=== PATIENT | male | born 1985 | race Caucasian/White ===

== ENCOUNTER 2023-10-09 07:27 | Day surgery (SDC) | payer OTHER ==
[2023-10-07 12:27] VITALS: BMI 51.1
[~2023-10-09 07:27] MED LIST: HYDROmorphone 0.5 MG/0.5 ML SYRINGE IVP PRN; LIDOCAINE 1% (10MG/ML) FOR IV START INTRADERMA PRN; MIDAZOLAM 2 MG/2 ML VIAL IV PRN
[2023-10-09] MEDS: LACTATED RINGERS 1,000 ML IV SCH (07:49)
[2023-10-09 08:08] VITALS: RESP 16
[2023-10-09] MEDS: DEXAMETHASONE SOD PHOSPHATE 4 MG/ML 1 ML VIAL IV ONE (08:16)
[2023-10-09] MEDS: ONDANSETRON 4 MG/2 ML VIAL IVP ONE ×2 (08:16→11:50)
[2023-10-09] MEDS: MIDAZOLAM 2 MG/2 ML VIAL IVP ONE (08:51)
[2023-10-09] MEDS ORDERED: fentaNYL (PF) 50 MCG/ML 2 ML AMP ONE (09:19)
[2023-10-09] MEDS ORDERED: PHENYLEPHRINE 10 MG/ML VIAL ONE (09:19)
[2023-10-09] MEDS ORDERED: SUCCINYLCHOLINE CHLORIDE 200 MG/10 ML VIAL IV ONE (09:19)
[2023-10-09] MEDS ORDERED: PROPOFOL 10 MG/ML 20 ML VIAL IV ONE (09:19)
[2023-10-09] MEDS ORDERED: MIDAZOLAM 2 MG/2 ML VIAL ONE (09:19)
[2023-10-09] MEDS ORDERED: ROPIVACAINE 5 MG/ML 30 ML VIAL ONE (09:19)
[2023-10-09] MEDS ORDERED: LIDOCAINE 1% INJ 10MG/ML (20 ML MDV) ONE (09:19)
[2023-10-09] MEDS ORDERED: DEXAMETHASONE SOD PHOSPHATE 4 MG/ML 1 ML VIAL ONE (09:19)
[2023-10-09] MEDS: ceFAZolin 3 GM in SODIUM CHLORIDE 0.9% 100 ML IVPB PRN (09:22)
--- NOTE | 2023-10-09 09:39 | P.ANPRN ---
Procedure Note - Anesthesia - Nerve Block Performed Left Popliteal Single Time Out Performed: Yes Date of Procedure: 10/09/23 Procedure Start Time: 08:50 Procedure Stop Time: 09:00 Location of Patient: PreOp Indication: Acute Post-Operative Pain, Requested by Surgeon Sedation Type: Sedate with meaningful contact maintained Preparation: Sterile Prep, Sterile Dressing Position: Right Lateral Catheter: None Needle Types: Facet Needle Gauge: 20 Ultrasound used to visualize needle placement: Yes Ultrasound used to observe medication spread: Yes Injectate: 0.5% Ropivacaine (see comment for volume) (30 ml + decadron 4 mg) Blood Aspirated: No Pain Paresthesia on Injection Noted: No Resistance on Injection: Normal Image Stored and Saved: Yes Events: Uneventful and Well Tolerated
[2023-10-09] MEDS: LACTATED RINGERS 1,000 ML IV ONE (10:24)
--- NOTE | 2023-10-09 10:35 | P.OP ---
Date of Procedure: 10/09/23 Preoperative Diagnosis: 1.left ankle instability 2. Sprain of anterior talofibular ligament left ankle Postoperative Diagnosis: 1. Same 2. Same Procedure(s) Performed: secondary repair left lateral ankle ligaments Implants: Arthrex internal brace Arthrex knotless fiber Quentin anchors 2 Anesthesia: MINIA Surgeon: Justice Boogie Estimated Blood Loss (ml): 10 Pathology: none sent Condition: stable Disposition: PACU Description of Procedure: Prior to the patient being brought to the operating room, anesthesia administered a nerve block on the affected extremity. The patient was brought into the operative room and placed on table supine position. Timeout was taken to confirm correct patient identifiers, correct laterality of surgery, and correct procedure. Once all staff in the room were in agreement with the timeout, the patient was induced and placed under general anesthesia. A well- padded tourniquet was placed on the left calf and a bump underneath the hip of the expected extremity to internally rotate the leg. The leg was then prepped and draped in usual manner. The leg was exsanguinated and the tourniquet inflated to 250 mmHg. Attention was directed over the anterior lateral ankle, where a incision was made just anterior to lateral malleolus. The incision was deepened down to the subcutaneous tissue careful to identify, avoid, and retract any neurovascular structures and cauterize any bleeding vessels. Blunt dissection was continued down to the lateral ankle joint capsule and ligamentous structures. The capsule and ligamentous structures were sharply incised off of the anterior surface the lateral malleolus. A Housekeeper Nanny was used to remove the cortical bone on the anterior surface the lateral malleolus and the roughened edges smoothed with a rasp. This is to allow adhesion of the ligaments upon repair. With the ankle in neutral position, the soft tissue over the lateral aspect of the talus, anterior to the joint surface, and near the junction of the neck, was palpated for the location of the 4.75 mm anchor. A small stab incision was made through the tissue and then the drill hole for the 4.75 mm anchor was made into the talus in such a way to avoid the ankle and subtalar joints. The hole was tapped and then the 4.75 mm anchor inserted and advanced down to proper depth. The wood heel flap inserter was removed and the suture was set aside. The same drill bit was used for the drill hole in the lateral malleolus for the 3.5 mm anchor. Program Paraprofessional holes for the fiber Quentin anchors were made, one inferior and one superior, to the 3.4 mm drill hole. With the drill guide still in place, the fiber Quentin anchors were inserted through the guide and then impacted down to proper depth. The guide was removed as was the wood heel flap inserter. Tension was placed on the suture to lock the anchor into the bone. The wound was then thoroughly irrigated with antibiotic saline. The suture on the fiber Quentin anchors was used to capture the distal ligamentous and capsular structures. With the ankle and maximum dorsiflexion and eversion, the suture was tied bringing the ligament and capsular structures back to the anterior surface the lateral malleolus. The 2 arms of the suture from the 4.75 mm anchor were then inserted through the 3.5 mm anchor, which was then aligned with the drill hole lateral malleolus. Utilizing described tensioning techniques, the anchor and suture were inserted into lateral malleolus and the anchor advanced until proper depth. At that point ankle was tested for stability: Were anterior drawer and inversion stress are negative. The wound is irrigated with antibiotic saline. The fiber Quentin suture was then used to sew the soft tissue flap from the periosteum of the lateral malleolus over the repair site in a pants over vest fashion. The subcutaneous layer was closed with 4-0 Monocryl. And skin closure done with 4-0 Stratafix in a running subcuticular manner. Dermal glue was placed over the incision and allowed to dry. Steri- Strips were applied and then a Arthrex jumpstart dressing. A dry sterile francisco ssing was applied to the ankle. The tourniquet was released and capillary refill return to all digits on the foot.
[2023-10-09 11:13] VITALS: TEMP 97.1
[2023-10-09] MEDS ORDERED: ONDANSETRON 4 MG/2 ML VIAL ONE (11:50)
[2023-10-09 12:44] VITALS: BP 128/83; PULSE 83
== END 2023-10-09 12:36 | disposition home or self-care (01) ==
LOC: OR 07:27
PROVIDERS: ATTEND Podiatrist
DX: M25.372 Other instability, left ankle (principal); S93.492A Sprain of other ligament of left ankle, initial encounter; F10.90 Alcohol use, unspecified, uncomplicated; I10 Essential (primary) hypertension; Z82.49 Family history of ischemic heart disease and other diseases of the circulatory system; Z79.899 Other long term (current) drug therapy; X58.XXXA Exposure to other specified factors, initial encounter; Z98.890 Other specified postprocedural states
CPT/HCPCS: 27698; 64445; C1713 ×3; J2250; J0330; J1100; J0690; J2405; J2001; J3010; J2795; J2704; J2371